=== PATIENT | female | born 1930 | race Caucasian/White ===

== ENCOUNTER 2016-11-14 18:30 | Inpatient (IN) | payer MEDICARE, BC, OTHER ==
[~2016-11-14] VITALS: Ht 147.3 cm; Wt 54.6 kg
--- NOTE | ~2016-11-14 | CR72 ---
[facility] A Service of [facility] RADIOLOGY TEXT RESULTS PATIENT: SHU DE LA O LOCATION: [facility] [id number] : 30 UNIT #: [id number] AGE: [address]: Wily Al MD SEX: F ORDER DR: [id number] [facility] [address] [place], [place] [address] [id number] MR#: [id number] #: [id number] NAME: SHU DE LA O. : 1930 SEX: F STUDY DATE/TIME: 11/14/2016 22:36 UNIT: [facility] ROOM: [facility] STUDY DESCRIPTION: CR Chest Single View Portable Attending Physician: Giulia Mcgovern M.D. Ordering Physician: Jaxson Nelson M.D. Primary Care Physician: Bala Martini M.D. MEDICAL IMAGING REPORT This report is preliminary unless electronic signature is present EXAM Portable chest 11/14 22:36. INDICATIONS Shortness of air and weakness for a few days. Low hemoglobin. Confusion. FINDINGS AP portable views of the chest were obtained and compared with 10/14/2015. Exam is limited due to difficulties in appropriately positioning the patient. Heart is enlarged. Lung volumes remain low but the lungs are grossly clear. There is a trace amount of left pleural fluid or pleural scarring. No visible pneumothorax. Please note that the left apex is never well seen as it is obscured by the patient's chin. Patient has a lower thoracic kyphoplasty. IMPRESSION Low lung volumes with stable cardiomegaly. No acute infiltrates are seen. There is trace left pleural fluid versus pleural scarring. Dictated by... Curtis Marquez Jr., M.D. THIS IS AN ELECTRONICALLY VERIFIED REPORT Curtis Marquez Jr., M.D. at 11/16/2016 12:50 AM CRISTOFERK/peña TD: 11/15/2016 06:05 JOB #: [id number] MEDICAL IMAGING REPORT Page 1 of 1 COPY
--- NOTE | ~2016-11-14 | EKG ---
PATIENT: SHU DE LA O UNIT #: [id number] Ventricular Rate: 109 BPM Atrial Rate: 110 BPM QRS Duration: 82 ms Q-T Interval: 328 ms QTC Calculation(Bezet): 441 ms Calculated R [place]: 23 degrees Calculated T [place]: -5 degrees Diagnosis Line: Atrial fibrillation with rapid ventricular Diagnosis Line: response Diagnosis Line: Septal infarct (cited on or before 14-NOV-2016) Diagnosis Line: Abnormal ECG Diagnosis Line: When compared with ECG of 14-OCT-2015 15:24, Diagnosis Line: Atrial fibrillation has replaced Sinus rhythm Diagnosis Line: Questionable change in initial forces of Septal Diagnosis Line: leads Diagnosis Line: Non-specific change in ST segment in Lateral leads Diagnosis Line: Nonspecific T wave abnormality now evident in Diagnosis Line: Anterior leads Diagnosis Line: Confirmed by YUE LIMON MD ([id number]) on 11/15/2016 Diagnosis Line: 6:47:46 PM INTERPRETING MD: ASHLY ZACARIAS
--- NOTE | ~2016-11-14 | DS ---
Unit #: [id number] #: [id number] Patient: SHU DE LA O [id number] [address] [place], [place] [address] [id number] I MR#: [id number] NAME: SHU DE LA O. ROOM: 555 Age: 86 Sex: F Admission Date: 11/15/2016 : 1930 Discharge Date: 11/18/2016 Attending Physician: Wily Al M.D. Primary Care Physician: Bala Martini M.D. DISCHARGE SUMMARY FINAL DIAGNOSES 1. Shortness of breath secondary to unstable atrial fibrillation and anemia. 2. Atrial fibrillation with rapid ventricular response. 3. Anemia. 4. Urinary tract infection, Escherichia coli, sensitive to Rocephin. 5. Right lateral ankle pain. 6. Oral thrush. SECONDARY DIAGNOSES 1. Peripheral vascular disease. 2. Hypertension. 3. Osteoporosis. 4. Degenerative joint disease. 5. History of supraventricular tachycardia. 6. Previous history of rib fractures and cognitive impairment. CONSULTS Dr. Rock, cardiology. HOSPITAL COURSE The patient is an 86-year-old female who has had a history of chronic anemia, usually follows up with Dr. Horowitz as an outpatient who basically presented with some shortness of breath, which was progressive over the past 2 days. She was seen and evaluated in the emergency room and admitted for atrial fibrillation with rapid ventricular response. She was started on amiodarone drip and subsequently converted to amiodarone. She was on a beta-evelina at home. Cardiology made recommendations for discharge, rate controlling medications prior to discharge. She is not a candidate for anticoagulation. The goal will be rate control only. Anemia. She did receive 1 unit of packed red blood cells. Hemoglobin today prior to discharge is 8.1. This seems to have been trending down. She will receive 3 doses of IV Venofer prior to discharge today. Repeat CBC on 11/21/16. Should her hemoglobin drop below 7, would arrange for outpatient transfusion. UTI. Urine cultures grew E-coli sensitive to Rocephin. Will discharge her home on Vantin 200 mg p.o. b.i.d. for the next 7 days and Floranex 1 cap p.o. b.i.d. as a probiotic for the next 6 weeks. Hypertension. This is stable at this time. Unit #: [id number] #: [id number] Patient: SHU DE LA O Oral thrush. This symptom improved with nystatin swish and spit. Right lateral ankle pain. She has had an open wound on the lateral malleolus of her right foot in the past. She was complaining of some tenderness in this area, and pressure relieving modalities were instituted. Prior to discharge she is no longer having this pain. I would have home health keep a close eye on this to make sure this is offloaded even while she is at home. MEDICATIONS ON DISCHARGE 1. Vantin 200 mg p.o. b.i.d. for 7 days. 2. Floranex 1 p.o. b.i.d. for 6 weeks. 3. Amiodarone per cardiology. 4. Adjustment of beta-evelina per cardiology prior to discharge. 5. Neurontin 100 mg p.o. at bedtime. 6. Remeron 7.5 mg p.o. at bedtime. 7. Trazodone 50 mg at bedtime. 8. Lomotil 2.5 mg p.o. b.i.d. as needed for diarrhea. 9. Zofran 4 mg p.o. q.6 hours p.r.n. 10. Nystatin swish and spit 10 mL for the next 7 days. 11. Nystatin powder to the affected skin b.i.d. 12. Xanax 0.25 mg p.o. 2 t.i.d. p.r.n. anxiety. 13. Metoprolol 25 mg p.o. b.i.d. unless adjusted per cardiology. 14. Colace 100 mg p.o. b.i.d. as needed. 15. Lisinopril was increased to 5 mg p.o. daily. 16. Glucosamine/chondroitin 1 capsule p.o. daily. 17. Multivitamin (Centrum Silver) 1 tablet p.o. daily. 18. Hydrocodone/acetaminophen 10/325 mg 1 tablet p.o. q.4 hours per home dose. No extra script written today. 19. Protonix 40 mg p.o. b.i.d. 20. Calcium carbonate with vitamin D 1 tab p.o. per home dose. 21. Vitamin B12 per home dose. 22. Vitamin E per home dose. 23. Cranberry tablet, 1 tablet p.o. daily. NOTE: Time spent coordinating discharge was about 40 minutes. Dictated by... Vika Moseley TD: 11/18/2016 12:22 JOB #: [id number] DISCHARGE SUMMARY Page 1 of 1 X Bala Martini MD X DISCHARGE SUMMARY
--- NOTE | ~2016-11-14 | HP ---
Unit #: [id number] #: [id number] Patient: SHU DE LA O [id number] [address] [address] [facility]. [place], [place] [address] [id number] I MR#: [id number] NAME: SHU DE LA O. ROOM: 555 Age: 86 Sex: F Admission Date: 11/15/2016 : 1930 Attending Physician: Giulia Mcgovern M.D. Primary Care Physician: Bala Martini M.D. HISTORY AND PHYSICAL CHIEF COMPLAINT Acute on chronic anemia. HISTORY This 86-year-old female with long history of anemia, PAF, dementia, hypertension, peripheral vascular disease, is admitted for worsening anemia. The patient herself is a poor historian due to her dementia. States that recently she has been more short of breath, generalized pain. She was seen by Dr. Martini and her anemia was worse. He recommended that she be seen in this emergency department. She currently is heme-negative and denies melena or hematochezia. Labs are notable for microcytic anemia with a hematocrit of 24.3, hemoglobin 7.2, down from a hemoglobin of 7.5 in May. Patient has undergone previous EGDs and colonoscopies. Last EGD revealed a large hiatal hernia, Deandre erosions, and AVMs, status post APC therapy. Last colonoscopy revealed extensive diverticular disease. Patient has required transfusions in the past as well. PAST MEDICAL HISTORY 1. Hypertension. 2. Longstanding anemia. Previous labs were notable for a ferritin of 10. Of note, a serum protein electrophoresis was performed 2007, which did show a IgG kappa monoclonal band. 3. Essential hypertension. 4. Osteoporosis. 5. DJD. 6. Supraventricular tachycardia and paroxysmal atrial fibrillation maintained of Betapace and Lopressor with history of mitral valve regurgitation followed by Dr. Horowitz. 7. 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 8. Previous admissions for upper and lower GI bleeding. Please see above details. 9. Anxiety. 10. Previous rib fracture. 11. Dementia. 12. Right total hip replacement. 13. Remote history of left hip osteomyelitis. 14. Total abdominal hysterectomy. 15. Last echo performed in 2011, ejection fraction 40% to 45%, right ventricular systolic pressure of 40-50 mmHg, severe TR, mild aortic stenosis, mild MR. Unit #: [id number] #: [id number] Patient: SHU DE LA O ALLERGIES Penicillin, codeine, erythromycin, Augmentin, Bactrim, Dilaudid. HOME MEDICATIONS 1. Glucosamine 750 mg daily. 2. Calcium plus D. 3. Vitamin E. 4. Betapace 80 mg q.a.m. 5. Spironolactone 25 mg as needed. 6. Colace 100 mg b.i.d. 7. Lisinopril 2.5 mg q.a.m. 8. Remeron 7.5 mg q.h.s. 9. Multivitamin daily. 10. Trazodone 50 mg q.h.s. 11. Lomotil p.r.n. 12. Xanax 0.25 mg t.i.d. 13. Chlorthalidone 25 mg b.i.d. 14. Protonix 40 mg daily. 15. Neurontin 100 mg 2 tablets at bedtime. 16. Zofran p.r.n. 17. Hydrocodone 10/325 one to two tablets q.4 hours as needed. 18. Toprol XL 25 mg daily. 19. B12 daily. 20. Acidophilus daily. 21. Cranberry vitamin daily. FAMILY HISTORY CVA, leukemia, breast cancer, lymphoma, CAD. SOCIAL HISTORY The patient lives with her elderly . She is a lifelong nonsmoker and does not drink alcohol. REVIEW OF SYSTEMS Difficult to obtain as patient herself is a very poor historian. PHYSICAL EXAMINATION GENERAL APPEARANCE: Mildly anxious, 86-year-old female. VITAL SIGNS: Temperature 98.9; pulse 98, but current heart rate is actually 130; respirations 16; blood pressure 136/72; and O2 saturation 97% on room air. HEENT: Eyes: PERRLA. Extraocular muscles are intact. Pharynx appears to be benign and somewhat poor dentition. NECK: Supple without adenopathy or thyromegaly. CHEST: Clear. CARDIAC: Irregularly irregular S1 and S2 with soft systolic murmur along the left sternal border. ABDOMEN: Bowels sounds are present. Mildly tender. No hepatosplenomegaly or masses. EXTREMITIES: Minimal edema. NEUROLOGIC: Patient is oriented to person, but she is a bit confused and anxious. She has equal strength throughout. RECTAL EXAMINATION: Per the ER physician, Hemoccult negative. DIAGNOSTIC STUDIES ADMISSION LABS: Hematocrit is 24.3 with a hemoglobin of 7.2, down from 7.5 in May; MCV of 76.6; normal white count and platelet count. Normal coags. SMA-12: Glucose 112, BUN 24, CO2 33. Urinalysis: 2+ leukocyte Unit #: [id number] #: [id number] Patient: SHU DE LA O esterase with 100-200 white cells, 4+ bacteria, no squamous cells seen. IMAGING: Chest x-ray: Stable cardiomegaly, trace left pleural effusion versus scarring. CARDIOVASCULAR: EKG: AFib, RVR, rate 110. Qs noted in V1 and V2. ASSESSMENT 1. Microcytic anemia, acute on chronic. Iron deficiency in the past. Patient also had an abnormal serum protein electrophoresis in 2007 with an IgG kappa monoclonal band. Had previous EGD and colonoscopies, please see above details, but she is heme-negative at this time. 2. Urinary tract infection. 3. History of paroxysmal atrial fibrillation and supraventricular tachycardia, now in atrial fibrillation with RVR. Previous echo showed ejection fraction 40% to 45%. 4. Essential hypertension. 5. Dementia. 6. Anxiety. 7. Peripheral vascular disease. PLANS 1. Transfuse 2 units. 2. Anemia workup. 3. Antibiotics. 4. Cardiology to see. Will give one extra dose of Lopressor now. 5. SCDs for DVT prophylaxis. 6. Further workup including endoscopy depending on wishes of family and patient. Dictated by iGulia Mcgovern M.D. AML/pc TD: 11/15/2016 05:36 JOB #: [id number] HISTORY AND PHYSICAL Page 1 of 1 X Giulia Mcgovern MD X HISTORY AND PHYSICAL
--- NOTE | ~2016-11-14 | CO ---
Unit #: [id number] #: [id number] Patient: SHU DE LA O [id number] [address] [place], [place] [address] [id number] I MR#: [id number] NAME: SHU DE LA O ROOM: 555 Age: 86 Sex: F Admission Date: 11/15/2016 : 1930 Attending Physician: Wily Al M.D. Primary Care Physician: Bala Martini M.D. Consultation Date: 11/15/2016 CONSULTATION REPORT REASON FOR CONSULTATION Atrial fibrillation. HISTORY OF PRESENT ILLNESS This is an 86-year-old female, who is a patient of Dr. Horowitz with a prior history of dementia, paroxysmal atrial fibrillation, SVT, hypertension, and chronic anemia, and PVD. An echocardiogram in 2011 showed an ejection fraction of 40% to 45%, mild MR, severe TR, mild AR, and mild with RVSP 40 to 50 mmHg. She presented to the emergency room with increasing shortness of breath and weakness over the last few weeks. She has long-standing anemia and her stockroom keeper told her to go to the emergency room due to low hemoglobin. An EKG showed atrial fibrillation with a ventricular rate of 108. We were asked to see her to manage her atrial fibrillation. She denies recent illness with fever, chills, body aches, nausea, or vomiting. She does state that she has been having some increasing weakness and trouble breathing over the last few weeks. PAST MEDICAL HISTORY 1. Anemia. 2. Dementia. 3. Paroxysmal atrial fibrillation. 4. Paroxysmal SVT. 5. Hypertension. 6. Peripheral vascular disease. 7. Valvular heart disease. 8. Osteoporosis. 9. Degenerative joint disease. 10. Anxiety. 11. Previous rib fracture. 12. History of upper and lower GI bleeds. SURGICAL HISTORY 1. Right total hip replacement. 2. Total abdominal hysterectomy. 3. Amputation of right second toe. SOCIAL HISTORY She lives at home with her 92-year-old , who she helps care for. She does have a freight unloader who comes in the home and prepares their meals each day. She denies a history of smoking or alcohol use. She denies illicit drug use. Unit #: [id number] #: [id number] Patient: SHU DE LA O FAMILY HISTORY Denies a history of premature coronary artery disease. ALLERGIES She is allergic to penicillin, codeine, erythromycin, Augmentin, Bactrim, and Dilaudid. HOME MEDICATIONS 1. Glucosamine 750 mg p.o. daily 2. Calcium plus with vitamin D one tablet once a day 3. Vitamin E 4000 units capsule once daily 4. Betapace 80 mg p.o. every a.m. 5. Spironolactone 25 mg p.o. as needed 6. Colace 100 mg p.o. twice a day 7. Lisinopril 2.5 mg p.o. every a.m. 8. Remeron 7.5 mg p.o. every hour for sleep 9. Multivitamin once daily 10. Trazodone 50 mg p.o. every hour for sleep 11. Lomotil as needed for diarrhea 12. Xanax 0.25 mg p.o. three times a day 13. Chlorthalidone 25 mg p.o. twice a day 14. Protonix 40 mg p.o. daily 15. Neurontin 200 mg p.o. at bedtime 16. Zofran 4 mg p.o. every six hours as needed for nausea 17. Hydrocodone 10/325 mg 1-2 tablets every four hours as needed for pain 18. Toprol XL 25 mg p.o. daily 19. Vitamin B12 once daily 20. Cranberry vitamins once daily REVIEW OF SYSTEMS A ten point review of systems was conducted and is otherwise negative except for what was stated in the history of present illness. PHYSICAL EXAMINATION VITAL SIGNS: Temperature 98.2, heart rate 118, respiratory rate 20, and blood pressure 150/92. GENERAL: This is an alert and oriented 86-year-old female resting in bed in no acute distress. HEENT: Head is atraumatic and normocephalic. Pupils are equal and reactive to light. Mucous membranes are moist and intact. NECK: Supple. Trachea is midline. Plus JVD. LUNGS: Fine rales in bilateral bases with occasional rhonchi. Nonlabored respirations. HEART: S1, S2. Irregularly irregular rhythm. No significant murmurs, rubs, or gallops. ABDOMEN: Right upper quadrant is tender to palpation. No masses. No ascites. Bowel sounds positive. EXTREMITIES: Pulses are intact. No pedal edema. No cyanosis. NEUROLOGIC: Alert and oriented to person and place. Moves all extremities equally and follows commands without difficulty. DIAGNOSTIC STUDIES LABORATORY: Laboratory results, sodium 144, potassium 3.9, BUN 24, creatinine 0.7, glucose 112, hemoglobin 7.2, hematocrit 24.3, white blood cell count 4, platelets 189, PT 10.8, INR 1, PTT 32.9, and point of care troponin less than 0.05. Urinalysis showed 2+ leukocyte esterase. IMAGING STUDIES: Chest x-ray shows cardiomegaly with trace left pleural Unit #: [id number] #: [id number] Patient: SHU DE LA O fluid vs scarring. CARDIOVASCULAR: EKG shows atrial fibrillation with a rapid ventricular rate of 108. ASSESSMENT 1. Recent onset atrial fibrillation. 2. Chronic anemia. 3. Hypertension. 4. Dementia. 5. Urinary tract infection. 6. Anxiety. 7. Peripheral vascular disease. PLAN 1. We will try to convert to normal sinus rhythm with IV amiodarone. 2. She is not a candidate for anticoagulation with her severe anemia requiring blood transfusion. 3. Will maintain oral amiodarone for rhythm control. 4. Check TSH level. 5. Continue beta evelina and Cl inhibitor. 6. Check echocardiogram. 7. Add BNP to blood drawn this morning. 8. Check stool for occult blood. Thank you for asking us to see this patient, we appreciate the consult. Dictated by... Jaz Henderson APRN for Imtiaz Rock M.D. Saba TD: 11/16/2016 09:18 JOB #: [id number] CONSULTATION REPORT Page 1 of 1 X X CONSULTATION REPORT
[~2016-11-14 18:30] MED LIST: ACETAMINOPHEN PO; ALDACTONE25 MG PO; ALPRAZOLAM PO; ALPRAZOLAM0.25 MG PO; BETAPACE PO; BETAPACE80 MG PO; CALCIUM + D 6001 TA1 PO; CALCIUM 500 +1 EAC2 PO; CALCIUM 500 +1 EACH PO; CALCIUM WITH D PO; CENTRUM SILVER PO; CENTRUM SILVER1 EAC2 PO; CHLORTHALIDONE25 MG PO; COLACE PO; CYMBALTA PO; DESYREL50 M1 PO; DESYREL50 MG DOB; DESYREL50 MG PO; DOCU SOFT100 M1 PO; DOCUSATE SODIU100 MG PO; DOXYCYCLINE PO; FEROSUL325 ( 651 PO; FLAGYL PO; FLEXERIL10 M1 PO; FLORASTOR250 M1 PO; GAVISCON LIQUI355 ML PO; GLUCOSAMINE & C1 CAP PO; GLUCOSAMINE &1 EACH PO; GLUCOSAMINE PO; GLUCOSAMINE500 M1 PO; HCTZ; HYDROCODON-ACE1 EAC1 PO; HYDROCODON-ACE1 EAC5 PO; IMITREX6 MG/0.51 SQ; IRON PO; KCL PO; KEFLEX500 M1 PO; LASIX PO; LASIX20 MG PO; LASIX80 MG PO; LEVAQUIN PO; LISINOPRIL10 MG PO; LISINOPRIL2.5 MG PO; LOMOTIL WHITE2.5 M1 PO; LORTAB 101 TAB 10/5 DOB; MACROBID100 M1 PO; MEGACE PO; MEGESTROL ACETA20 MG PO; MELATONIN3 MG PO; MELATONIN5 M1 PO; METOPROLOL SUCC25 MG PO; METOPROLOL TAR25 MG PO; MILK OF MAGNESIA PO; MIRTAZAPINE7.5 MG PO; MULTIVITAMIN W/1 TAB PO; NATURAL VITA400 UNI2 PO; NATURAL VITA400 UNI3 PO; NEURONTIN100 MG PO; NEURONTIN300 MG PO; NORVASC PO; OXECTA5 MG PO; OYSTER SHELL CA1 TA5 PO; PHENERGAN12.5 MG PO; PREVACID SOLUTA30 M1 PO; PREVACID30 MG/BLIS PO; PROMACTA25 MG PO; PROTONIX PO; REMERON15 MG PO; ROXICODONE PO; TYLENOL325 M1 PO; VICODIN; VICODIN 5/500 T1 TAB PO; VICODIN ES 7.51 EACH PO; VIT E PO; VITAMIN C PO; VITAMIN C500 M1 PO; VITAMIN D 22000 UNIT PO; VITAMIN D400 UNI1 PO; VITAMIN D400 UNI2 PO; VITAMIN E400 UNI1 PO; VITAMIN E400 UNI2 PO; VITAMIN E400 UNI4 PO; XANAX0.5 M1 PO; Z PAK; ZESTRIL2.5 M1 PO; ZOFRAN ODT4 MG PO; ZOFRAN PO
[2016-11-14 19:51] LABS: BASOPHIL# 0.1 X10e3 (0-0.3); BASOPHIL% 1.5 % (0-2.5); EOSINOPHIL# 0.1 X10e3 (0-0.7); EOSINOPHIL% 2.3 % (0.0-7.0); HEMATOCRIT 24.3 % (35.0-45.0); HEMOGLOBIN 7.2 gm/dL (12.0-16.0); LYMPHOCYTE# 0.9 X10e3 (1.0-3.5); LYMPHOCYTE% 21.2 % (17.0-45.0); MEAN CELL VOLUME 76.6 FL (83-96); MEAN CORPUSCULAR HEMOGLOBIN 22.8 PG (28-34); MEAN CORPUSCULAR HGB CONC 29.7 g/dL (30-36); MEAN PLATELET VOLUME 8.2 FL (6.5-11.5); MONOCYTE# 0.3 X10e3 (0-1.0); MONOCYTE% 7.5 % (3.0-12.0); NEUTROPHIL# 2.7 X10e3 (1.5-7.1); NEUTROPHIL% 67.5 % (40-75); PLATELET COUNT 189 X10e3 (140-420); RED BLOOD COUNT 3.18 X10e (3.90-5.30); RED CELL DISTRIBUTION WIDTH 17.4 % (11.0-15.5)
[2016-11-14 19:52] LABS: DIFF IND YES
[2016-11-14 20:15] LABS: ALBUMIN SERUM 3.7 g/dL (3.5-5.0); BILIRUBIN, DIRECT 0.1 mg/dL (0.0-0.2); BILIRUBIN,INDIRECT 0.1 mg/dL (0.0-0.9); BILIRUBIN,TOTAL 0.2 mg/dL (0.2-2.0); BUN/CREATININE RATIO 34.28; CALCIUM SERUM 8.7 mg/dL (8.4-10.2); CREATININE SERUM 0.7 mg/dL (0.6-1.4); GLOM FILT RATE Estimated 78.5 mL/min (>60); POTASSIUM 3.9 mmol/L (3.5-5.1); PROTEIN TOTAL SERUM 6.8 g/dL (6.0-8.3)
[2016-11-14 20:18] LABS: PLATELET ESTIMATE NORMAL (NORMAL); RBC NORMAL YES
[2016-11-14 20:21] LABS: HYPOCHROMIA MOD; POIKILOCYTOSIS SL
[2016-11-14 20:22] LABS: ANISOCYTOSIS SL
[2016-11-14 22:30] LABS: POC - CKMB 1.2 ng/mL (0.0-7.9); POC - TROPONIN <0.05 ng/mL (<=0.05)
[2016-11-14 22:52] LABS: PARTIAL THROMBOPLASTIN TIME 32.9 SECONDS (23.5-31.3); PROTHROMBIN TIME (PATIENT) 10.8 SECONDS (10.0-11.7)
[2016-11-14 22:59] LABS: URINE SOURCE CLEAN CATCH
[2016-11-14 23:07] LABS: URINE APPEARANCE CLOUDY; URINE BILIRUBIN NEG (NEG); URINE BLOOD NEG (NEG); URINE COLOR YELLOW; URINE GLUCOSE NEG (NEG); URINE KETONE NEG (NEG); URINE LEUKOCYTE ESTERASE 2+ (NEG); URINE NITRATE NEG (NEG); URINE PH 5.5 (5-8); URINE PROTEIN TRACE (NEG); URINE SPECIFIC GRAVITY 1.021 (1.003-1.035); URINE UROBILINOGEN 0.2 MG/DL (NEG)
[2016-11-14 23:10] LABS: CULTURE INDICATED? YES; URBCS1 AUWI 0-2 /[HPF] (0-2); URINE BACTERIA AUWI 4+ (NEGATIVE); URINE SQUAMOUS EPITHELIAL CELL NONE SEEN /[HPF]; UWBCS1 AUWI 100-200 (0-5)
[2016-11-14 23:46] LABS: POC - CKMB 1.8 ng/mL (0.0-7.9); POC - TROPONIN <0.05 ng/mL (<=0.05)
[2016-11-15] MEDS ORDERED: CALCIUM 500 +1 EAC2 PO (02:01)
[2016-11-15] MEDS ORDERED: GLUCOSAMINE &1 EAC1 PO (02:01)
[2016-11-15] MEDS ORDERED: ALDACTONE25 MG PO (02:03)
[2016-11-15] MEDS ORDERED: VITAMIN E400 UNI4 PO (02:03)
[2016-11-15] MEDS ORDERED: DOCUSATE SODIU100 MG PO (02:04)
[2016-11-15] MEDS ORDERED: ZESTRIL2.5 MG PO (02:04)
[2016-11-15] MEDS ORDERED: MIRTAZAPINE7.5 MG PO (02:04)
[2016-11-15] MEDS ORDERED: MULTI-DAY VITA1 EACH PO (02:05)
[2016-11-15] MEDS ORDERED: CENTRUM SILVER PO (02:07)
[2016-11-15] MEDS ORDERED: DESYREL50 MG DOB (02:07)
[2016-11-15] MEDS ORDERED: LOMOTIL 2.5-0.1 EACH PO (02:08)
[2016-11-15] MEDS ORDERED: ALPRAZOLAM0.25 MG PO (02:08)
[2016-11-15] MEDS ORDERED: CHLORTHALIDONE25 MG PO (02:10)
[2016-11-15] MEDS ORDERED: PROTONIX PO (02:11)
[2016-11-15] MEDS ORDERED: ZOFRAN PO (02:12)
[2016-11-15] MEDS ORDERED: NEURONTIN100 MG PO (02:12)
[2016-11-15] MEDS ORDERED: HYDROCODON-ACE1 EAC5 PO (02:13)
[2016-11-15 02:17] LABS: FOLATE (FOLIC ACID) 11.9 ng/mL (>5.8)
[2016-11-15] MEDS ORDERED: METOPROLOL SUCC25 MG PO (02:32)
[2016-11-15] MEDS ORDERED: ENFOLAST TABLE1 EACH PO (02:33)
[2016-11-15] MEDS ORDERED: ACIDOPHILUS1 TA1 PO (02:36)
[2016-11-15] MEDS ORDERED: CRANBERRY TABL1 EACH PO (02:36)
[2016-11-15 16:32] LABS: HEMATOCRIT 32.4 % (35.0-45.0); MEAN CELL VOLUME 76.8 FL (83-96); MEAN CORPUSCULAR HEMOGLOBIN 23.5 PG (28-34); MEAN CORPUSCULAR HGB CONC 30.6 g/dL (30-36); MEAN PLATELET VOLUME 8.1 FL (6.5-11.5); RED BLOOD COUNT 4.22 X10e (3.90-5.30); RED CELL DISTRIBUTION WIDTH 17.3 % (11.0-15.5); RETICULOCYTE 1.2 % (0.5-2.8); WHITE BLOOD COUNT 5.4 X10e3 (4.0-10.5)
[2016-11-15 16:33] LABS: HEMOGLOBIN 9.9 gm/dL (12.0-16.0)
[2016-11-15 16:54] LABS: BUN/CREATININE RATIO 36.66; CALCIUM SERUM 8.3 mg/dL (8.4-10.2); CREATININE SERUM 0.6 mg/dL (0.6-1.4); GLOM FILT RATE Estimated 82.5 mL/min (>60)
[2016-11-16 06:10] LABS: HEMATOCRIT 30.4 % (35.0-45.0); HEMOGLOBIN 9.5 gm/dL (12.0-16.0); MEAN CELL VOLUME 76.7 FL (83-96); MEAN CORPUSCULAR HEMOGLOBIN 23.9 PG (28-34); MEAN CORPUSCULAR HGB CONC 31.2 g/dL (30-36); MEAN PLATELET VOLUME 8.1 FL (6.5-11.5); RED BLOOD COUNT 3.96 X10e (3.90-5.30); WHITE BLOOD COUNT 4.4 X10e3 (4.0-10.5)
[2016-11-16 14:03] LABS: CALCIUM SERUM 7.9 mg/dL (8.4-10.2); POTASSIUM 3.8 mmol/L (3.5-5.1)
[2016-11-17 05:21] LABS: HEMATOCRIT 26.7 % (35.0-45.0); HEMOGLOBIN 8.5 gm/dL (12.0-16.0); MEAN CELL VOLUME 76.1 FL (83-96); MEAN CORPUSCULAR HEMOGLOBIN 24.2 PG (28-34); MEAN CORPUSCULAR HGB CONC 31.8 g/dL (30-36); MEAN PLATELET VOLUME 8.3 FL (6.5-11.5); RED BLOOD COUNT 3.5 X10e (3.90-5.30); RED CELL DISTRIBUTION WIDTH 17.2 % (11.0-15.5); WHITE BLOOD COUNT 4.1 X10e3 (4.0-10.5)
[2016-11-17 07:03] LABS: BUN/CREATININE RATIO 31.11; CALCIUM SERUM 7.9 mg/dL (8.4-10.2); CREATININE SERUM 0.9 mg/dL (0.6-1.4); GLOM FILT RATE Estimated 57.9 mL/min (>60)
[2016-11-18 05:13] LABS: HEMOGLOBIN 8.1 gm/dL (12.0-16.0); MEAN CORPUSCULAR HEMOGLOBIN 23.4 PG (28-34); MEAN PLATELET VOLUME 8.3 FL (6.5-11.5); RED BLOOD COUNT 3.46 X10e (3.90-5.30); RED CELL DISTRIBUTION WIDTH 17.5 % (11.0-15.5); WHITE BLOOD COUNT 4.4 X10e3 (4.0-10.5)
[2016-11-18] MEDS ORDERED: NILSTAT PO (16:02)
[2016-11-18] MEDS ORDERED: FLORANEX PO (16:04)
[2016-11-18] MEDS ORDERED: PRINIVIL5 MG PO (16:05)
[2016-11-18] MEDS ORDERED: VANTIN200 MG PO (16:06)
[2016-11-18] MEDS ORDERED: METOPROLOL SUCC25 MG PO (16:06)
[2016-11-18] MEDS ORDERED: AMIODARONE PO (16:07)
== END 2016-11-18 17:13 | disposition home health service (06) | DRG 309 ==
LOC: CED 18:30 → CEDOF 11-15 01:00 → CED 11-15 01:00 → C5B 11-15 01:00 → CEDOF 11-15 01:49 → C5B 11-15 08:25
PROVIDERS: Emergency Medicine; Family Medicine; Internal Medicine
PROC: 30233N1 Transfusion of Nonautologous Red Blood Cells into Peripheral Vein, Percutaneous Approach (ICD-10-PCS; principal; 2016-11-15)
PROC: B24BZZZ Ultrasonography of Heart with Aorta (ICD-10-PCS; 2016-11-15)
DX: I48.0 Paroxysmal atrial fibrillation (principal); B37.0 Candidal stomatitis; F03.90 Unspecified dementia, unspecified severity, without behavioral disturbance, psychotic disturbance, mood disturbance, and anxiety; N39.0 Urinary tract infection, site not specified; D50.9 Iron deficiency anemia, unspecified; B96.20 Unspecified Escherichia coli [E. coli] as the cause of diseases classified elsewhere; M25.571 Pain in right ankle and joints of right foot; I73.9 Peripheral vascular disease, unspecified; I10 Essential (primary) hypertension; M81.0 Age-related osteoporosis without current pathological fracture; F41.9 Anxiety disorder, unspecified; Z96.641 Presence of right artificial hip joint; Z90.710 Acquired absence of both cervix and uterus; Z89.421 Acquired absence of other right toe(s); Z88.0 Allergy status to penicillin; Z88.1 Allergy status to other antibiotic agents; Z88.8 Allergy status to other drugs, medicaments and biological substances; Z82.3 Family history of stroke; Z80.3 Family history of malignant neoplasm of breast; Z82.49 Family history of ischemic heart disease and other diseases of the circulatory system
CPT/HCPCS: 36415; 71010; 80048; 80076; 81003; 82274; 82553; 82607; 82728; 82746; 83880; 84443; 84484; 85025; 85027; 85044; 85610; 85730; 86850; 86870; 86900; 86901; 86905; 86922; 87086; 87088; 87186; 92610; 93005; 93306; 99285; C9113; G8996-GN; G8997-GN; G8998-GN; J0282; J0696; J2916; P9016

== ENCOUNTER 2016-11-19 21:49 | Emergency (ER) | payer MEDICARE, BC, OTHER ==
[~2016-11-19] VITALS: Ht 160 cm; Wt 54.6 kg
--- NOTE | ~2016-11-19 | CT71 ---
[facility] A Service of [facility] RADIOLOGY TEXT RESULTS PATIENT: SHU DE LA O LOCATION: [facility] : 30 UNIT #: [id number] AGE: [address]: Jaxson Nelson MD SEX: F ORDER DR: [id number] [facility] [address] [place], [place] [address] [id number] MR#: [id number] Acc #: [id number] NAME: SHU DE LA O. : 1930 SEX: F STUDY DATE/TIME: 11/19/2016 23:15 UNIT: [facility] ROOM: STUDY DESCRIPTION: CT Head Wo Contrast Attending Physician: Jaxson Nelson M.D. Ordering Physician: Jaxson Nelson M.D. Primary Care Physician: Bala Martini M.D. MEDICAL IMAGING REPORT This report is preliminary unless electronic signature is present EXAM CT head, noncontrast, 11/19/2016 HISTORY 86-year-old female in the ED after head injury earlier today. Fell, striking head. Scalp laceration over the top of the head. Neck pain and weakness. TECHNIQUE CT examination of the head without IV contrast. The images are degraded by patient motion artifact. She was reportedly uncooperative during the study. Positioning was also challenging secondary to patient kyphosis. This CT examination was performed with one or more of the following radiation dose reduction techniques: automatic exposure control, adjustment of mA and/or kV according to patient size, and iterative reconstruction. FINDINGS No acute intracranial abnormality is visible. Left upper parietal scalp contusion at the vertex, but no visible skull fracture. Moderate generalized cerebral atrophy. Mild diffuse low-attenuation white matter changes are nonspecific but likely related to chronic microvascular disease. These changes are stable since the previous study of 07/12/2015. No evidence of intracranial hemorrhage, mass, mass effect, cerebral edema or progressive ventricular enlargement since the prior study. IMPRESSION 1. Motion-limited examination. 2. Small left upper parietal scalp contusion at the vertex. No visible skull fracture. 3. No gross evidence of acute intracranial abnormality. [facility] A Service of [facility] RADIOLOGY TEXT RESULTS PATIENT: SHU DE LA O LOCATION: [facility] : 30 UNIT #: [id number] AGE: [address]: Jaxson Nelson MD SEX: F ORDER DR: 4. Stable diffuse chronic changes as noted above. 5. No change since 07/12/2015. Dictated by... Live Johnson M.D. THIS IS AN ELECTRONICALLY VERIFIED REPORT Live Johnson M.D. at 11/20/2016 4:46 PM KERRY/jessica TD: 11/20/2016 11:14 JOB #: [id number] MEDICAL IMAGING REPORT Page 1 of 1 COPY
--- NOTE | ~2016-11-19 | CT52 ---
[facility] A Service of [facility] RADIOLOGY TEXT RESULTS PATIENT: SHU DE LA O LOCATION: [facility] : 30 UNIT #: [id number] AGE: [address]: Jaxson Nelson MD SEX: F ORDER DR: [id number] [facility] [address] [place], [place] [address] [id number] E MR#: [id number] Acc #: [id number] NAME: SHU DE LA O. : 1930 SEX: F STUDY DATE/TIME: 11/19/2016 23:18 UNIT: [facility] ROOM: STUDY DESCRIPTION: CT Cervical Spine Wo Cont Attending Physician: Jaxson Nelson M.D. Ordering Physician: Jaxson Nelson M.D. Primary Care Physician: Bala Martini M.D. MEDICAL IMAGING REPORT This report is preliminary unless electronic signature is present EXAM CT cervical spine 11/19/2016. HISTORY 86-year-old female in the ED after injury today. Fell. Laceration on the top of the head. Head and neck pain. Weakness. TECHNIQUE CT examination of the cervical spine using thin-section axial images from the skull base through the lower margin of T4. Sagittal and coronal images were reconstructed. Patient positioning was challenging, due to patient uncooperativeness, as well as spinal kyphosis. Supplemental angled axial images were obtained at at least 2 levels to compensate for kyphotic spinal angulation. This CT exam was performed with one or more of the following radiation dose reduction techniques: automatic exposure control, adjustment of mA and/or kV according to patient size, and iterative reconstruction. FINDINGS No fracture or other acute osseous abnormality is demonstrated. Cervical vertebral alignment is normal. Moderate degenerative disc space changes throughout the entire cervical spine, greatest at C7-T1. Posterior vertebral osteophyte formation from C3-4 to C7-T1. Moderate degenerative facet arthropathy bilaterally throughout the cervical spine. Cervical vertebral alignment is normal. No significant change since 07/27/2012. IMPRESSION 1. No fracture or other acute osseous abnormality. 2. Multilevel degenerative disc space changes, greatest at C7-C1. Multilevel bilateral degenerative facet arthropathy. 3. Cervical vertebral alignment is normal. [facility] A Service of [facility] & [facility] RADIOLOGY TEXT RESULTS PATIENT: SHU DE LA O LOCATION: [facility] : 30 UNIT #: [id number] AGE: [address]: Jaxson Nelson MD SEX: F ORDER DR: 4. No change since 07/27/2012. Dictated by... Live Johnson M.D. THIS IS AN ELECTRONICALLY VERIFIED REPORT Live Johnson M.D. at 11/20/2016 4:46 PM KERRY/papa TD: 11/20/2016 11:20 JOB #: [id number] MEDICAL IMAGING REPORT Page 1 of 1 COPY
--- NOTE | ~2016-11-19 | EKG ---
PATIENT: SHU DE LA O UNIT #: [id number] Ventricular Rate: 104 BPM Atrial Rate: 117 BPM QRS Duration: 90 ms Q-T Interval: 378 ms QTC Calculation(Bezet): 497 ms Calculated R [place]: 18 degrees Calculated T [place]: 11 degrees Diagnosis Line: Atrial fibrillation with rapid ventricular Diagnosis Line: response Diagnosis Line: Prolonged QT Diagnosis Line: Abnormal ECG Diagnosis Line: When compared with ECG of 14-NOV-2016 22:07, Diagnosis Line: QT has lengthened Diagnosis Line: Confirmed by OFELIA CARR MD ([id number]) on Diagnosis Line: 11/20/2016 12:17:56 PM INTERPRETING MD: NORA
[~2016-11-19 21:49] MED LIST changes: +ACIDOPHILUS1 TA1 PO; +AMIODARONE PO; +CRANBERRY TABL1 EACH PO; +ENFOLAST TABLE1 EACH PO; +FLORANEX PO; +GLUCOSAMINE &1 EAC1 PO; +LOMOTIL 2.5-0.1 EACH PO; +MULTI-DAY VITA1 EACH PO; +NILSTAT PO; +PRINIVIL5 MG PO; +VANTIN200 MG PO; +ZESTRIL2.5 MG PO
[2016-11-20 02:07] LABS: BASOPHIL% 0.3 % (0-2.5); EOSINOPHIL% 0.1 % (0.0-7.0); HEMOGLOBIN 9.5 gm/dL (12.0-16.0); LYMPHOCYTE# 0.6 X10e3 (1.0-3.5); LYMPHOCYTE% 7.8 % (17.0-45.0); MEAN CELL VOLUME 77.8 FL (83-96); MEAN CORPUSCULAR HEMOGLOBIN 24.7 PG (28-34); MEAN CORPUSCULAR HGB CONC 31.8 g/dL (30-36); MEAN PLATELET VOLUME 8.3 FL (6.5-11.5); MONOCYTE# 0.6 X10e3 (0-1.0); MONOCYTE% 7.6 % (3.0-12.0); NEUTROPHIL# 6.7 X10e3 (1.5-7.1); NEUTROPHIL% 84.2 % (40-75); PLATELET COUNT 202 X10e3 (140-420); RED BLOOD COUNT 3.86 X10e (3.90-5.30); RED CELL DISTRIBUTION WIDTH 17.5 % (11.0-15.5)
[2016-11-20 02:09] LABS: POC - CKMB 2.8 ng/mL (0.0-7.9); POC - TROPONIN <0.05 ng/mL (<=0.05)
[2016-11-20 02:12] LABS: DIFF IND NO
[2016-11-20 02:32] LABS: ALBUMIN SERUM 4.1 g/dL (3.5-5.0); BILIRUBIN, DIRECT 0.2 mg/dL (0.0-0.2); BILIRUBIN,TOTAL 1.2 mg/dL (0.2-2.0); BUN/CREATININE RATIO 34.28; CALCIUM SERUM 8.8 mg/dL (8.4-10.2); CREATININE SERUM 0.7 mg/dL (0.6-1.4); GLOM FILT RATE Estimated 78.5 mL/min (>60); MAGNESIUM 1.9 mg/dL (1.6-3.0); POTASSIUM 3.7 mmol/L (3.5-5.1); PROTEIN TOTAL SERUM 7.5 g/dL (6.0-8.3)
== END 2016-11-20 03:22 | disposition home or self-care (01) ==
LOC: CED 21:49
PROVIDERS: Emergency Medicine
DX: S09.90XA Unspecified injury of head, initial encounter (principal); I48.91 Unspecified atrial fibrillation; W18.30XA Fall on same level, unspecified, initial encounter
CPT/HCPCS: 36415; 70450; 72125; 80048; 80076; 82553; 83735; 84484; 85025; 93005; 96374; 99284; J3490

== ENCOUNTER 2016-11-26 17:20 | Observation (INO) | payer MEDICARE, BC, OTHER ==
[~2016-11-26] VITALS: Ht 157.5 cm; Wt 51.0 kg
--- NOTE | ~2016-11-26 | DS ---
Unit #: [id number] #: [id number] Patient: SHU DE LA O [id number] [address] [address] [id number] I MR#: [id number] NAME: SHU DE LA O. ROOM: 339 Age: 86 Sex: F Admission Date: 11/26/2016 : 1930 Discharge Date: 11/29/2016 Attending Physician: Wily Al M.D. Primary Care Physician: Bala Martini M.D. DISCHARGE SUMMARY REASON FOR ADMISSION Weakness. HISTORY OF PRESENT ILLNESS/HOSPITAL COURSE Patient is an 86-year-old female, longstanding history of microcytic anemia, atrial fibrillation, dementia, hypertension, was admitted secondary to weakness. She had recently been admitted from 11/15 through 11/18 secondary to anemia, status post transfusion as well as atrial fibrillation related issues. Apparently she went home. She felt profound weakness, had difficulty with transfers and thus presented back to the hospital for further evaluation. While here, she underwent routine laboratory studies. She was noted to be at baseline in regards to her anemia status with hemoglobin of approximately 9.7. Her other laboratory studies were ascertained and age appropriate, within normal limits. Her B12 level was normal as well. She underwent a CT chest noncontrast to rule out the possibility of aspiration pneumonia and/or occult pneumonia which was negative. Small bilateral pleural effusions were noted upon. She does have severe scoliosis as well as chronic compression fractures. She was evaluated by physical and occupational therapy. Both services did recommend the patient be transferred to a rehab facility. However, after review and secondary to patient's insurance company stating that she did not need any inpatient criteria, her insurance company then requested patient be discharged home so, at their request, patient will be transitioned back home. CURRENT CLINICAL DIAGNOSIS 1. Hypertension. 2. Weakness. 3. Longstanding iron deficiency anemia, baseline hemoglobin between 9 to 10. 4. Osteoporosis. 5. Osteoarthritis. 6. SVT with paroxysmal atrial fibrillation. 7. Severe tricuspid regurgitation. 8. Valvular heart disease. 9. Systolic heart failure, ejection fraction of 40-45%. 10. Prior history of GI bleed. 11. Anxiety. 12. Prior rib fractures. 13. Dementia. 14. Scoliosis. 15. Compression fractures. Unit #: [id number] #: [id number] Patient: SHU DE LA O 16. Prior history of hip replacement. Discharge medications remain unchanged from home medications. Overall fpc prognosis of this patient is poor. She likely requires predatory animal exterminator nursing care and/or home placement. However, her insurance company has denied. Dictated by... Vika Madrid/enrrique TD: 11/29/2016 12:43 JOB #: [id number] DISCHARGE SUMMARY Page 1 of 1 X Wily Al MD X DISCHARGE SUMMARY
--- NOTE | ~2016-11-26 | CT57 ---
[facility] A Service [facility] RADIOLOGY TEXT RESULTS PATIENT: HSU DE LA O LOCATION: [facility] 339-01 : 30 UNIT #: [id number] AGE: [address]: Wily Al MD SEX: F ORDER DR: [id number] [facility] [address] [place], [place] [address] [id number] I MR#: [id number] Acc #: [id number] NAME: SHU DE LA O. : 1930 SEX: F STUDY DATE/TIME: 11/27/2016 17:44 UNIT: [address] ROOM: [facility] STUDY DESCRIPTION: CT Chest Wo Cont Attending Physician: Wily Al M.D. Ordering Physician: Wily Al M.D. Primary Care Physician: Bala Martini M.D. MEDICAL IMAGING REPORT This report is preliminary unless electronic signature is present EXAM CT chest, noncontrast, 11/27/2016 HISTORY 86-year-old female hospital inpatient with atrial fibrillation, anemia, hypokalemia, immobility syndrome and weakness. Clinical concern for pneumonia. TECHNIQUE CT examination of the chest without IV contrast. This CT exam was performed with one or more of the following radiation dose reduction techniques: automatic exposure control, adjustment of mA and/or kV according to patient size, and iterative reconstruction. FINDINGS The exam shows small bilateral pleural effusions with associated compressive atelectasis of the dependent posterior lung bases, greater on the left. The lungs are otherwise expanded and clear. Heart size normal, no pericardial effusion. Severe scoliosis. Mild chronic appearing vertebral compression fracture deformities at T6, T7, T11 and T12 with previous vertebroplasty at T11. Old healed right ninth rib fracture. Small to moderate sized hiatal hernia. IMPRESSION 1. Small bilateral pleural effusions with dependent posterior lung base atelectasis. The lungs are otherwise expanded and clear. 2. No active disease within the chest. Heart size normal. No pericardial effusion. 3. Severe scoliosis. Mild chronic vertebral compression fracture [facility] A [facility] RADIOLOGY TEXT RESULTS PATIENT: SHU DE LA O LOCATION: [facility] 339-01 : 30 UNIT #: [id number] AGE: [address]: Wily Al MD SEX: F ORDER DR: deformities at T6, T7, T11, and T12. Previous T11 vertebroplasty. Old healed right ninth rib fracture. 4. Small to moderate sized hiatal hernia. Dictated by... Live Johnson M.D. THIS IS AN ELECTRONICALLY VERIFIED REPORT Live Johnson M.D. at 12/07/2016 12:22 PM KERRY/nitish TD: 11/27/2016 22:42 JOB #: [id number] MEDICAL IMAGING REPORT Page 1 of 1 COPY
--- NOTE | ~2016-11-26 | CR72 ---
[facility] A Service of [facility] RADIOLOGY TEXT RESULTS PATIENT: SHU DE LA O LOCATION: [facility] 339-01 : 30 UNIT #: [id number] AGE: [address]: Wily Al MD SEX: F ORDER DR: [id number] [facility] [address] [place], [place] [address] [id number] I MR#: [id number] Acc #: [id number] NAME: SHU DE LA O : 1930 SEX: F STUDY DATE/TIME: 11/26/2016 22:14 [facility] STUDY DESCRIPTION: CR Chest Single View Portable Attending Physician: Wily Al M.D. Ordering Physician: Giulia Mcgovern M.D. Primary Care Physician: Bala Martini M.D. MEDICAL IMAGING REPORT This report is preliminary unless electronic signature is present EXAM Portable chest. HISTORY Cough and weakness and shortness of air for 2 weeks. FINDINGS Compared to 11/14/2016, there is new dense consolidation or atelectasis in the left base and small left pleural effusion. There is also new mild patchy infiltrate or atelectasis in the right base. Cardiac and mediastinal contours are stable. Relatively low lung volumes. Chronic changes in the lower thoracic and lumbar spine. Dictated by... Gianluca Cedillo M.D. THIS IS AN ELECTRONICALLY VERIFIED REPORT Gianluca Cedillo M.D. at 11/28/2016 4:13 AM DFAdelfo/aliyah TD: 11/27/2016 08:20 JOB #: [id number] MEDICAL IMAGING REPORT Page 1 of 1 COPY
--- NOTE | ~2016-11-26 | A ---
[facility] Nutrition Therapy DATE: 11/27/16 Patient: SHU DE LA O Physician: JOHNNIE Address: [address] [place] [address] ROAD Room/Bed: [address] [place] [address], Zip: [place] [address] Admit Date: 11/26/16 Date of : 30 Height: 5 2 Weight: 120 54.6 NUTRITIONAL ASSESSMENT: REASON: 2 nutrition risk points re: eating poorly, pressure ulcer Admitting dx: 86 y/o female admitted with generalized weakness and chronic anemia PMH: Anemia, a-fib, dementia, HTN Anthropometrics: Ht: 62", Wt: 120 lbs, BMI: 23 (normal), UBW per daughter: 110-120 lbs Labs: Reviewed; nothing significant Meds: Therapeutic formula, colace, zofran prn, lasix, PPI, Vit E, Os-stef + D, nephrocaps I/O & Bowel function: Last BM unknown Skin Integrity: Stage II pressure ulcer coccyx, generalized edema MIL legs Estimated Nutrition Needs: Increased Assessment: Chart reviewed, events noted. See admitting dx and PMH as stated above. RD assessing due to pressure ulcer and eating poorly. Family in room states the patient's weight has been fluctuating between a norm of 110-120 lbs due to recurrent illness and that she hasn't been eating great. Family does encourage protein-rich foods. Family asking RD to change pt's diet to regular. Patient does not generally like oral supplements but is willing to try Ensure pudding- will order. See recs below. Dx: 1) Inadequate oral intake r/t recurrent illness, decreased appetite AEB family report, need for ONS, increased nutrient needs. Intervention: Regular diet + ONS Monitoring, Evaluation and Goals: 1. PO intake > 50% of meals/supps. 2. Prevent unintentional weight loss. 3. Promote wound healing. Monitor: per protocol, criteria to determine if above goals met Recommendations: 1. Please change diet to regular to liberalize food choices. [facility] Nutrition Therapy DATE: 11/27/16 Patient: SHU DE LA O Physician: JOHNNIE Address: [address] [place] [address] ROAD Room/Bed: [address] [place] [address], Zip: [place] [address] Admit Date: 08/28/17 Date of : 30 Height: 5 2 Weight: [address] ordering vanilla and butter pecan Ensure pudding BID. 3. Wound care prn. RD will follow Mild-moderate nutrition risk Respectfully, Sharona Claire RD, [facility] [employer] [facility] cc: client file
--- NOTE | ~2016-11-26 | EKG ---
PATIENT: SHU DE LA O UNIT #: [id number] Ventricular Rate: 92 BPM Atrial Rate: 87 BPM QRS Duration: 98 ms Q-T Interval: 328 ms QTC Calculation(Bezet): 405 ms Calculated R Eugene: -38 degrees Calculated T Eugene: -47 degrees Diagnosis Line: Atrial fibrillation Diagnosis Line: Left axis deviation Diagnosis Line: Incomplete right bundle branch block Diagnosis Line: Possible Anterior infarct , age undetermined Diagnosis Line: Abnormal ECG Diagnosis Line: When compared with ECG of 20-NOV-2016 02:29, Diagnosis Line: Nonspecific T wave abnormality, worse in Diagnosis Line: Anterolateral leads Diagnosis Line: QT has shortened Diagnosis Line: Confirmed by YUE LIMON MD ([id number]) on 11/26/2016 Diagnosis Line: 8:05:38 PM INTERPRETING MD: ASHLY ZACARIAS
--- NOTE | ~2016-11-26 | HP ---
Unit #: [id number] #: [id number] Patient: SHU DE LA O [id number] [facility]. [place], [place] [address] [id number] I MR#: [id number] NAME: SHU DE LA O ROOM: 02874 Age: 86 Sex: F Admission Date: 11/26/2016 : 1930 Attending Physician: Giulia Mcgovern M.D. Primary Care Physician: Bala Martini M.D. HISTORY AND PHYSICAL CHIEF COMPLAINT Weakness. HISTORY This 86-year-old female with longstanding microcytic anemia, atrial fibrillation, dementia, hypertension, is admitted for increasing weakness. Patient was last admitted 11/15 through 11/18/2016 for anemia requiring one unit of packed red blood cells, shortness of breath secondary to anemia and atrial fibrillation. She was also diagnosed with an E. coli UTI at that time, was seen in consultation by Cardiology and amiodarone was added to try to convert the patient to a sinus rhythm. While at home she has become increasingly weak, with immobilization, not even able to transfer to the bathroom. Today she also had a low-grade temperature at home. She was told to be seen in this emergency department for further evaluation. Patient herself denies complaints at present but she is quite weak on exam. Labs show her chronic microcytic anemia but this is stable. Her urinalysis currently is negative. She is hypokalemic. PAST MEDICAL HISTORY 1. Essential hypertension. 2. Longstanding iron deficiency anemia. 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 3. Essential hypertension. 4. Osteoporosis. 5. DJD. 6. Supraventricular tachycardia and paroxysmal atrial fibrillation, maintained on Betapace and Lopressor and now placed on amiodarone as atrial fibrillation looks to be more persistent. Previous echo 2011, ejection fraction 40% to 45%. Right ventricular systolic pressures of 40 to 50 mmHg, severe TR, mild aortic stenosis, mild AR. 7. 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 8. Previous admissions for upper and lower GI bleeding. Previous EGD and colonoscopy showed large hiatal hernia, Deandre erosions, AVMs requiting APC therapy. Last colonoscopy extensive diverticular disease. 9. Anxiety. 10. Previous rib fractures. 11. Dementia. 12. Right total hip replacement. 13. Remote history of left hip osteomyelitis. Unit #: [id number] #: [id number] Patient: SHU DE LA O 14. Total abdominal hysterectomy. ALLERGIES Penicillin, codeine, Augmentin, erythromycin, sulfa and Dilaudid. Possibly oxycodone. HOME MEDICATIONS 1. Amiodarone 200 mg b.i.d. which is going to decrease to amiodarone 200 mg daily q.a.m. 2. The patient was recently started on doxycycline last week for UTI. 3. Floranex one tablet p.o. b.i.d. 4. Neurontin 100 mg q.h.s. 5. Remeron 7.5 mg q.h.s. 6. Trazodone 50 mg daily. 7. Beta evelina, uncertain of the dose. 8. Lomotil 2.5 mg b.i.d. 9. Zofran 4 mg q.6 h. p.r.n. 10. Xanax 0.25 mg two t.i.d. p.r.n. anxiety. 11. Metoprolol 25 mg b.i.d. 12. Colace 100 mg b.i.d. 13. Lisinopril 5 mg daily. 14. Glucosamine and chondroitin one capsule daily. 15. Hydrocodone 10/325 one tablet q.4 h. p.r.n. I believe. 16. Protonix 40 mg b.i.d. 17. Calcium carbonate with vitamin D one tablet daily. 18. Vitamin B12 daily. 19. Vitamin E daily. 20. Cranberry tablets daily. FAMILY HISTORY CVA, leukemia, breast cancer, lymphoma and CAD. SOCIAL HISTORY The patient lives with her elderly . Lifelong nonsmoker, does not drink alcohol. REVIEW OF SYSTEMS Difficult to obtain as the patient herself is a poor historian. PHYSICAL EXAMINATION GENERAL: Pleasantly confused 86-year-old female currently in no acute distress. VITAL SIGNS: Temperature 98.7. Pulse 93. Respirations 18. Blood pressure 154/81. O2 saturation is 95% on 2 L of oxygen. HEENT: Eyes PERRLA, extraocular muscles are intact, status post bilateral cataract extraction. Pharynx is benign. NECK: Supple, without adenopathy or thyromegaly, a somewhat elevated JVD noted. CHEST: A few rhonchi but otherwise clear. CARDIAC: Irregularly irregular, tachycardic, S1 and S2, with a soft systolic murmur heard along the left sternal border. ABDOMEN: Bowel sounds are present. No hepatosplenomegaly, tenderness or masses. EXTREMITIES: With 2+ bilateral pedal edema. NEUROLOGIC EXAM: Patient is pleasantly confused. Her cranial nerves are intact. She has equal strength throughout but is generally weak on exam. DIAGNOSTIC STUDIES Unit #: [id number] #: [id number] Patient: SHU DE LA O LABORATORY: Admission labs show hematocrit is 32.2 which is stable, MCV 80.1, normal white count and platelet count; coags normal; cardiac markers are normal; SMA 12: BUN 28, creatinine is normal, potassium 3.1, CO2 32, calcium is 8.2. Urinalysis is negative. CARDIOVASCULAR: EKG: Afib, rate about 92, Qs noted in V1 and V2. ASSESSMENT 1. Weakness, increasing immobilization. 2. Fever today. 3. Atrial fibrillation, on amiodarone. Patient is not an anticoagulation candidate due to his previous gastrointestinal bleeding. 4. Chronic microcytic anemia which is stable. 5. Dementia. 6. Essential hypertension. 7. Peripheral vascular disease. 8. Anxiety. 9. Hypokalemia. PLANS 1. Replace potassium and check magnesium. 2. Check stool for C. diff. 3. Obtain chest x-ray. 4. TSH. 5. Discontinue doxycycline as urine now is clear and apparently patient has had some loose stools. 6. Physical therapy to assess ambulation. 7. SCDs for DVT prophylaxis. 8. Care management and social work to see. Dictated by Giulia Mcgovern M.D. AML/cf TD: 11/26/2016 22:37 JOB #: [id number] HISTORY AND PHYSICAL Page 1 of 1 X Giulia Mcgovern MD X HISTORY AND PHYSICAL
--- NOTE | ~2016-11-26 | DS ---
Unit #: [id number] #: [id number] Patient: SHU DE LA O [id number] [address] [address] [id number] I MR#: [id number] NAME: SHU DE LA O ROOM: 339 Age: 86 Sex: F Admission Date: 11/26/2016 : 1930 Discharge Date: 11/29/2016 Attending Physician: Wily Al M.D. Primary Care Physician: Bala Martini M.D. DISCHARGE SUMMARY ADDENDUM After review, discussion and appeal by patient as well as care management, patient has now been improved for transition to rehab facility. Once rehab placement is achieved, patient will be transitioned to rehab for ongoing care. Remainder of her hospital course as well as medications remain unchanged. Dictated by... Vika Madrid/enrrique TD: 11/29/2016 12:50 JOB #: [id number] DISCHARGE SUMMARY Page 1 of 1 X Wily Al MD X DISCHARGE SUMMARY
[2016-11-26 18:33] LABS: URINE SOURCE CLEAN CATCH
[2016-11-26 18:35] LABS: POC - CKMB 1.4 ng/mL (0.0-7.9); POC - TROPONIN <0.05 ng/mL (<=0.05)
[2016-11-26 18:41] LABS: BASOPHIL% 0.4 % (0-2.5); EOSINOPHIL% 0.3 % (0.0-7.0); HEMATOCRIT 32.2 % (35.0-45.0); HEMOGLOBIN 9.8 gm/dL (12.0-16.0); LYMPHOCYTE# 0.7 X10e3 (1.0-3.5); LYMPHOCYTE% 13.8 % (17.0-45.0); MEAN CELL VOLUME 80.1 FL (83-96); MEAN CORPUSCULAR HEMOGLOBIN 24.3 PG (28-34); MEAN CORPUSCULAR HGB CONC 30.4 g/dL (30-36); MEAN PLATELET VOLUME 8.2 FL (6.5-11.5); MONOCYTE# 0.3 X10e3 (0-1.0); MONOCYTE% 6.5 % (3.0-12.0); NEUTROPHIL# 4.1 X10e3 (1.5-7.1); PLATELET COUNT 299 X10e3 (140-420); RED BLOOD COUNT 4.02 X10e (3.90-5.30); RED CELL DISTRIBUTION WIDTH 21.6 % (11.0-15.5); WHITE BLOOD COUNT 5.2 X10e3 (4.0-10.5)
[2016-11-26 18:42] LABS: URINE APPEARANCE CLEAR; URINE BILIRUBIN NEG (NEG); URINE BLOOD NEG (NEG); URINE COLOR YELLOW; URINE GLUCOSE NEG (NEG); URINE KETONE NEG (NEG); URINE LEUKOCYTE ESTERASE NEG (NEG); URINE NITRATE NEG (NEG); URINE PH 5.5 (5-8); URINE PROTEIN NEG (NEG); URINE UROBILINOGEN 0.2 MG/DL (NEG)
[2016-11-26 18:45] LABS: DIFF IND NO
[2016-11-26 18:58] LABS: CULTURE INDICATED? NO
[2016-11-26 19:10] LABS: ALBUMIN SERUM 3.5 g/dL (3.5-5.0); BILIRUBIN, DIRECT 0.1 mg/dL (0.0-0.2); BILIRUBIN,INDIRECT 0.6 mg/dL (0.0-0.9); BILIRUBIN,TOTAL 0.7 mg/dL (0.2-2.0); CALCIUM SERUM 8.2 mg/dL (8.4-10.2); CREATININE SERUM 0.8 mg/dL (0.6-1.4); GLOM FILT RATE Estimated 66.8 mL/min (>60); POTASSIUM 3.1 mmol/L (3.5-5.1); PROTEIN TOTAL SERUM 6.3 g/dL (6.0-8.3)
[2016-11-26 19:17] LABS: INR 1.3; PARTIAL THROMBOPLASTIN TIME 38.9 SECONDS (23.5-31.3)
[2016-11-27 06:06] LABS: BASOPHIL% 0.5 % (0-2.5); HEMATOCRIT 31.4 % (35.0-45.0); HEMOGLOBIN 9.7 gm/dL (12.0-16.0); LYMPHOCYTE# 1.2 X10e3 (1.0-3.5); MEAN CELL VOLUME 82.3 FL (83-96); MEAN CORPUSCULAR HEMOGLOBIN 25.3 PG (28-34); MEAN CORPUSCULAR HGB CONC 30.8 g/dL (30-36); MEAN PLATELET VOLUME 8.1 FL (6.5-11.5); MONOCYTE# 0.4 X10e3 (0-1.0); MONOCYTE% 9.4 % (3.0-12.0); NEUTROPHIL# 2.8 X10e3 (1.5-7.1); NEUTROPHIL% 62.1 % (40-75); PLATELET COUNT 256 X10e3 (140-420); RED BLOOD COUNT 3.82 X10e (3.90-5.30); RED CELL DISTRIBUTION WIDTH 21.2 % (11.0-15.5); WHITE BLOOD COUNT 4.6 X10e3 (4.0-10.5)
[2016-11-27 06:16] LABS: DIFF IND NO
[2016-11-27 06:28] LABS: BUN/CREATININE RATIO 31.25; CALCIUM SERUM 7.9 mg/dL (8.4-10.2); CREATININE SERUM 0.8 mg/dL (0.6-1.4); GLOM FILT RATE Estimated 66.8 mL/min (>60); MAGNESIUM 1.6 mg/dL (1.6-3.0); POTASSIUM 4.4 mmol/L (3.5-5.1)
[2016-11-28 06:10] LABS: HEMATOCRIT 31.2 % (35.0-45.0); HEMOGLOBIN 9.7 gm/dL (12.0-16.0); MEAN CELL VOLUME 80.4 FL (83-96); MEAN CORPUSCULAR HGB CONC 31.1 g/dL (30-36); MEAN PLATELET VOLUME 7.8 FL (6.5-11.5); RED BLOOD COUNT 3.88 X10e (3.90-5.30); RED CELL DISTRIBUTION WIDTH 21.7 % (11.0-15.5); WHITE BLOOD COUNT 4.1 X10e3 (4.0-10.5)
[2016-11-28 06:43] LABS: BUN/CREATININE RATIO 28.88; CALCIUM SERUM 7.9 mg/dL (8.4-10.2); CREATININE SERUM 0.9 mg/dL (0.6-1.4); GLOM FILT RATE Estimated 57.9 mL/min (>60); POTASSIUM 3.8 mmol/L (3.5-5.1)
== END 2016-11-29 17:19 ==
LOC: CED 17:20 → CEDOF 21:30 → C3A PCU 21:30 → CED 21:38 → CEDOF 21:38 → C3A PCU 21:38 → CEDOF 23:59 → C3A PCU 23:59
PROVIDERS: Emergency Medicine; Family Medicine; Internal Medicine
DX: R53.1 Weakness (principal); I11.0 Hypertensive heart disease with heart failure; D50.9 Iron deficiency anemia, unspecified; M81.0 Age-related osteoporosis without current pathological fracture; M19.90 Unspecified osteoarthritis, unspecified site; I47.1 Supraventricular tachycardia; I48.0 Paroxysmal atrial fibrillation; I07.1 Rheumatic tricuspid insufficiency; I38 Endocarditis, valve unspecified; I50.20 Unspecified systolic (congestive) heart failure; F41.9 Anxiety disorder, unspecified; Z87.81 Personal history of (healed) traumatic fracture; F03.90 Unspecified dementia, unspecified severity, without behavioral disturbance, psychotic disturbance, mood disturbance, and anxiety; M41.9 Scoliosis, unspecified; E87.6 Hypokalemia; Z87.19 Personal history of other diseases of the digestive system; Z80.3 Family history of malignant neoplasm of breast; Z88.0 Allergy status to penicillin; Z88.5 Allergy status to narcotic agent; Z88.1 Allergy status to other antibiotic agents; Z88.2 Allergy status to sulfonamides; Z79.899 Other long term (current) drug therapy; Z90.49 Acquired absence of other specified parts of digestive tract; Z96.649 Presence of unspecified artificial hip joint
CPT/HCPCS: 36415; 51701; 71010; 71250; 80048; 80076; 81003; 82553; 82607; 82947; 83735; 84443; 84484; 85025; 85027; 85610; 85730; 93005; 97110; 97116; 97162; 97165; 97530; 97535; 99285; G0378; G8978-GP; G8979-GP; G8987-GO; G8988-GO; G8989-GO; J1940